=== PATIENT | male | born 1975 | race Caucasian/White ===

== ENCOUNTER 2016-12-23 14:38 | Emergency (ER) | payer OTHER ==
[2016-12-23 15:09] VITALS: BP 123/82; PULSE 92; RESP 16; TEMP 98; O2SAT 100
--- NOTE | 2016-12-23 16:00 | ED PDOC ---
Lower Extremity Pain/Injury Time Seen by Provider: 12/23/16 15:04 Chief Complaint (Nursing): Lower Extremity Problem/Injury Chief Complaint (Provider): Lower Extremity Problem/ History Per: Patient History/Exam Limitations: no limitations Onset/Duration Of Symptoms: Days (x1) Additional Complaint(s): Jose Castaneda, 41 year old male presents to the ED on 12/23/16 after sustaining an injury to his left knee and left shoulder 1 day prior to arrival. The patient states, yesterday he fell down some steps and twisted his left knee and pulled his left shoulder. He denies any head injury, chest pain, abdominal pain , loss of consciousness, neck pain, or back pain. Past Medical History Reviewed: Historical Data, Nursing Documentation, Vital Signs Vital Signs: Last Vital Signs Temp 98.0 F 12/23/16 15:07 Pulse 92 H 12/23/16 15:07 Resp 16 12/23/16 15:07 BP 123/82 12/23/16 15:07 Pulse Ox 100 12/23/16 15:07 - Medical History PMH: HTN - Family History Family History: States: Unknown Family Hx - Immunization History Hx Tetanus Toxoid Vaccination: No Hx Influenza Vaccination: No Hx Pneumococcal Vaccination: No - Home Medications Home Medications: Ambulatory Orders Medication Instructions Recorded Metoclopramide [Reglan] 10 mg PO Q8 #30 tab 11/19/15 Naproxen [Naprosyn] 500 mg PO BID PRN #30 tab 11/19/15 Tramadol HCl [Ultram] 1 - 2 tab PO BID PRN #10 tablet 12/23/16 - Allergies Allergies/Adverse Reactions: Allergies Allergy/AdvReac Type Severity Reaction Status Date / Time No Known Allergies Allergy Verified 11/19/15 21:40 Review of Systems Constitutional: Negative for: Other (no head injury) Cardiovascular: Negative for: Chest Pain Gastrointestinal: Negative for: Abdominal Pain Musculoskeletal: Positive for: Shoulder Pain (left shoulder), Leg Pain (left knee). Negative for: Neck Pain, Back Pain Neurological: Negative for: Other (no loss of consciousness) Physical Exam - Reviewed Nursing Documentation Reviewed: Yes Vital Signs Reviewed: Yes - Physical Exam Appears: Positive for: Non-toxic, No Acute Distress Head Exam: Positive for: ATRAUMATIC, NORMOCEPHALIC Skin: Positive for: Normal Color, Warm, Dry Eye Exam: Positive for: Normal appearance ENT: Positive for: Normal ENT Inspection Neck: Positive for: Normal Cardiovascular/Chest: Positive for: Regular Rate, Rhythm, Chest Non Tender Respiratory: Positive for: Normal Breath Sounds. Negative for: Respiratory Distress Gastrointestinal/Abdominal: Positive for: Normal Exam, Soft. Negative for: Tenderness Back: Positive for: Normal Inspection Extremity: Positive for: Tenderness (left lateral shoulder tenderness; anterior left knee tenderness ) Neurologic/Psych: Positive for: Alert, Oriented (x3) - ECG O2 Sat by Pulse Oximetry: 100 (RA) Pulse Ox Interpretation: Normal - Radiology X-Ray: Interpreted by Me (Shoulder x-ray, knee x-ray) X-Ray Interpretation: No Acute Disease - Progress ED Course And Treament: Shoulder immobilized in sling by CASSIE. Knee placed in irving wrap by CASSIE. Medical Decision Making Medical Decision Makin:04 Initial Impression: Lower Extremity Injury/Upper Extremity Injury Initial Plan: * Knee 3 Views LT [RAD] Stat * Toradol 15 mg IM STAT * Shoulder Left One View (OR) [RAD] Stat * Reevaluation Scribe Attestation: Documented by Etelvina Jimenez, acting as a scribe for Keegan Clark PA-C. Provider Scribe Attestation: All medical record entries made by the Scribe were at my direction and personally dictated by me. I have reviewed the chart and agree that the record accurately reflects my personal performance of the history, physical exam, medical decision making, and the department course for this patient. I have also personally directed, reviewed, and agree with the discharge instructions and disposition Disposition - Clinical Impression Clinical Impression: Knee sprain, Shoulder injury - Patient ED Disposition Is Patient to be Admitted: No - Disposition Referrals: [facility] [Outside] Disposition: Routine/Home Disposition Time: 16:35 Condition: STABLE Prescriptions: Tramadol HCl [Ultram] 1 - 2 tab PO BID PRN #10 tablet PRN Reason: Other Instructions: Sprain (ED)
--- NOTE | 2016-12-23 16:25 | RAD ---
PROCEDURE: Radiographs of the Left Shoulder HISTORY: trauma COMPARISON: None available FINDINGS: BONES: No acute displaced fracture. The distal clavicle and underlying ribs appear intact. JOINTS: No acute dislocation. SOFT TISSUES: Soft tissues appear unremarkable. No evidence of radiopaque foreign body. IMPRESSION: No acute displaced fracture or dislocation evident. If symptoms persist or if there is continued clinical concern, x-ray follow-up in 7-10 days should be considered.
--- NOTE | 2016-12-23 16:32 | RAD ---
PROCEDURE: Left Knee Radiographs. HISTORY: COMPARISON: None available FINDINGS: BONES: No acute displaced fracture. JOINTS: No dislocation. JOINT EFFUSION: Small suprapatellar joint effusion. OTHER FINDINGS: Soft tissue swelling. No evidence of radiopaque foreign body. IMPRESSION: Soft tissue swelling. Small suprapatellar joint effusion. No acute displaced fracture or dislocation identified. If symptoms persist, or if there is continued clinical concern, x-ray follow-up in 7-10 days should be considered.
== END 2016-12-23 17:41 | disposition home or self-care (01) ==
LOC: H.ER 14:38
DX: S83.92XA Sprain of unspecified site of left knee, initial encounter (principal); S43.402A Unspecified sprain of left shoulder joint, initial encounter; W10.9XXA Fall (on) (from) unspecified stairs and steps, initial encounter; Y92.89 Other specified places as the place of occurrence of the external cause

== ENCOUNTER 2016-12-28 21:30 | Emergency (ER) | payer OTHER ==
[2016-12-28 22:37] VITALS: BP 168/83; PULSE 115; RESP 18; O2SAT 100
[2016-12-28 22:38] VITALS: TEMP 97.9
--- NOTE | 2016-12-28 22:54 | ED PDOC ---
HPI: Back Time Seen by Provider: 12/28/16 22:53 Chief Complaint (Nursing): Back Pain Chief Complaint (Provider): chest pain History Per: Patient (41 y/o male here for evaluation s/p fall downstairs. Patient was seen in ED at that time and had xry evaluation of left shoulder and left knee. Was given tramadol rx without relief of symptoms.) Past Medical History Reviewed: Historical Data, Nursing Documentation, Vital Signs Vital Signs: Last Vital Signs Temp 97.9 F 12/28/16 22:35 Pulse 115 H 12/28/16 22:35 Resp 18 12/28/16 22:35 BP 168/83 H 12/28/16 22:35 Pulse Ox 100 12/28/16 22:35 - Medical History PMH: HTN - Family History Family History: States: Unknown Family Hx - Immunization History Hx Tetanus Toxoid Vaccination: No Hx Influenza Vaccination: No Hx Pneumococcal Vaccination: No - Home Medications Home Medications: Ambulatory Orders Medication Instructions Recorded Metoclopramide [Reglan] 10 mg PO Q8 #30 tab 11/19/15 Naproxen [Naprosyn] 500 mg PO BID PRN #30 tab 11/19/15 Tramadol HCl [Ultram] 1 - 2 tab PO BID PRN #10 tablet 12/23/16 Naproxen [Naprosyn Tab] 375 mg PO Q8 PRN #21 tab 12/29/16 - Allergies Allergies/Adverse Reactions: Allergies Allergy/AdvReac Type Severity Reaction Status Date / Time No Known Allergies Allergy Verified 11/19/15 21:40 Review of Systems ROS Statement: Except As Marked, All Systems Reviewed And Found Negative Physical Exam - Reviewed Nursing Documentation Reviewed: Yes Vital Signs Reviewed: Yes - Physical Exam Appears: Positive for: Well, Non-toxic, No Acute Distress Head Exam: Positive for: ATRAUMATIC, NORMAL INSPECTION, NORMOCEPHALIC Skin: Positive for: Normal Color, Warm, DRY Eye Exam: Positive for: EOMI, Normal appearance, PERRL ENT: Positive for: Normal ENT Inspection Neck: Positive for: Normal, Painless ROM Cardiovascular/Chest: Positive for: Regular Rate, Rhythm. Negative for: Chest Non Tender (left chest wall tenderness) Respiratory: Positive for: CNT, Normal Breath Sounds Gastrointestinal/Abdominal: Positive for: Normal Exam, Bowel Sounds, Soft Back: Positive for: Normal Inspection Extremity: Positive for: Normal ROM Neurologic/Psych: Positive for: Alert, Oriented - ECG O2 Sat by Pulse Oximetry: 100 - Progress ED Course And Treament: toradol 15mg im x 1 dose Disposition - Clinical Impression Clinical Impression: Chest pain - Patient ED Disposition Is Patient to be Admitted: Transfer of Care - Disposition Disposition: Transfer of Care Disposition Time: 00:24 Condition: FAIR Prescriptions: Naproxen [Naprosyn Tab] 375 mg PO Q8 PRN #21 tab PRN Reason: Pain, Moderate (4-7) Patient Signed Over To: Kourtney Gipson Handoff Comments: pending cxr
--- NOTE | 2016-12-29 01:20 | ED PDOC ---
- ECG O2 Sat by Pulse Oximetry: 100 - Radiology X-Ray: Viewed By Me X-Ray Interpretation: No Acute Disease - Progress ED Course And Treament: Case endorsed to teletypewriter operator from Tanner SHAIKH pending xray Upon going to provide patient with xray results; patient not in exam room. Patient left ED before treatment completed. Disposition - Clinical Impression Clinical Impression: Chest pain - POA Present On Arrival: None - Disposition Disposition: Left W/O Treatment Disposition Time: :20 Condition: STABLE Prescriptions: Naproxen [Naprosyn Tab] 375 mg PO Q8 PRN #21 tab PRN Reason: Pain, Moderate (4-7) Instructions: Chest Wall Pain (ED)
--- NOTE | 2016-12-29 11:39 | RAD ---
HISTORY: chest jose COMPARISON: No prior. TECHNIQUE: Chest PA and lateral FINDINGS: LUNGS: Suspect minor linear/discoid type atelectasis left lung base PLEURA: No significant pleural effusion identified. No pneumothorax apparent. CARDIOVASCULAR: Normal. OSSEOUS STRUCTURES: Minor degenerative spondylosis of the thoracic spine. VISUALIZED UPPER ABDOMEN: Normal. OTHER FINDINGS: None. IMPRESSION: Minor linear/discoid type atelectasis left lung base suspected
== END 2016-12-29 01:25 | disposition left against medical advice (07) ==
LOC: H.ER 21:30
DX: R07.9 Chest pain, unspecified (principal); I10 Essential (primary) hypertension